=== PATIENT | female | born 1970 | race Caucasian/White ===

== ENCOUNTER 2018-01-29 18:32 | Inpatient (IN) | payer OTHER ==
[~2018-01-29] VITALS: Ht 162.6 cm; Wt 96.6 kg
--- NOTE | ~2018-01-29 | PROC ---
[address] [address] PROCEDURE REPORT Name: INESSA DEVLIN Room: [address] [place] .R.#: [id number] Admission: 01/29/18 Attend Phys: Chely Lieberman MD Discharge: 01/30/18 Date of : 72 Report #: [id number] THIS REPORT FOR: //name// For GI report, please see the Provation report in [employer] content. By: [id number] Records Staff ANJELICA /KURTIS
[~2018-01-29 18:32] MED LIST: CIPRO500 MG PO; CITRATE OF MAG296 ML PO; FLEXERIL PO; HYDROCODONE-AP1 EAC6 PO; IBUPROFEN 800800 M1 PO; NOHOMEMEDICATIONS; SLEEP AID25 MG PO
[2018-01-29 18:36] VITALS: BP 157/106
[2018-01-29] MEDS ORDERED: ZANTAC300 MG PO (18:39)
[2018-01-29] MEDS ORDERED: FLEXERIL PO (18:39)
[2018-01-29 22:40] LABS: ABSOLUTE EOSINOPHILS 0.2 thou/uL (0.0-0.7); ABSOLUTE LYMPHOCYTES 1.7 thou/uL (0.8-5.3); ABSOLUTE MONOCYTES 0.5 thou/uL (0.0-1.2); ABSOLUTE NEUTROPHILS 4.6 thou/uL (1.6-8.1); BASOPHILS 0.7 %; EOSINOPHILS 3.4 %; HEMATOCRIT 34.4 % (37.0-47.0); HEMOGLOBIN 11.9 gm/dL (12.0-15.0); LYMPHOCYTES 24.7 %; MCH 32.5 pg (26.0-34.0); MCHC 34.5 g/dL (28.0-37.0); MCV 94.1 fL (80.0-100.0); MONOCYTES 6.5 %; MPV 7.3 fl. (7.2-11.1); NUCLEATED RBCS 0 /100WBC; PLATELET COUNT* 223 thou/uL (150-400); POLYS 64.7 %; RBC 3.65 mil/uL (4.20-5.00); RDW-CV 12.7 % (10.5-14.5)
[2018-01-29 22:46] LABS: CALCIUM 8.7 mg/dL (8.5-10.1); CREATININE 0.6 mg/dL (0.6-1.3); POTASSIUM 3.3 mmol/L (3.5-5.1)
[2018-01-29 22:50] LABS: ALBUMIN 3.4 g/dL (3.4-5.0); TOTAL BILIRUBIN 0.4 mg/dL (<0.1-1.0); TOTAL PROTEIN 6.4 g/dL (6.4-8.2)
[2018-01-29 23:26] VITALS: BP 98/62
[2018-01-30 08:00] VITALS: BP 99/60
[2018-01-30 09:38] VITALS: BP 110/74; BP 99/60
[2018-01-30 12:45] VITALS: BP 99/64
[2018-01-30] MEDS ORDERED: PROTONIX40 M1 PO (14:09)
[2018-01-30] MEDS ORDERED: ZANTAC300 MG PO (14:09)
[2018-01-30 14:28] VITALS: BP 99/64
--- NOTE | 2018-02-16 12:22 | CON ---
[address] [address] CONSULTATION Name: CLAUSINESSA Room: [address] IN M.R.#: [id number] Admission: 01/29/18 Attend Phys: Chely Lieberman MD Discharge: 01/30/18 Date of : 72 Report #: [id number] THIS REPORT FOR: //name// CC: Brock Pollard MD DATE OF SERVICE: 01/30/2018 REFERRING PHYSICIAN: Chely Lieberman MD REASON FOR CONSULTATION: Dysphagia. IMPRESSION: 1. Progressive dysphagia with intermittent reflux issues -- evaluate for problems related to the same. 2. History of erosive esophagitis with previous EGD and dilations performed by my partner in the past. RECOMMENDATIONS: We will proceed with upper endoscopy today and possible dilation. We will make further recommendations after endoscopy is performed. HISTORY OF PRESENT ILLNESS: A very pleasant 47-year-old white female who presented to Emergency Room on the evening of 01/29/2018 with complaints of feeling as something was not going down. She had been eating some chicken and broccoli about an hour prior to coming to the Emergency Room at 7:00 p.m. and felt like it was not going down very well. It has happened multiple times in the past. She has had EGD and dilations in the past as well. She has undergone an upper endoscopy , in the past with findings of erosive esophagitis. She does have some problem with reflux issues for which she takes some ranitidine 300 mg once daily, but does not have any other issues. She denies complaints of any nausea, vomiting, hematemesis, melena, hematochezia. She has been in the hospital for further evaluation and treatment. ALLERGIES: None. MEDICATIONS: Include ranitidine and cyclobenzaprine. PAST MEDICAL AND SURGICAL HISTORY: Remarkable for reflux, otherwise has been healthy. SOCIAL HISTORY: The patient does not smoke, occasionally drinks alcohol. FAMILY HISTORY: [place] [address] CONSULTATION Name: CLAUSINESSA Room: [address]#: [id number] Admission: 01/29/18 Attend Phys: Chely Lieberman MD Discharge: 01/30/18 Date of : 72 Report #: [id number] PHYSICAL EXAMINATION: GENERAL: A pleasant 47-year-old white female who is awake and alert. CARDIOPULMONARY EXAMINATION: Revealed a regular rate and rhythm. Lungs are clear. ABDOMEN: Soft and not tender. LABORATORY DATA: Revealed a white count of 7.0, hemoglobin 11.9, platelet count 223,000, MCV is 94.1, RDW 12.7. Sodium 139, potassium 3.3, chloride 112, bicarbonate is 27, BUN 17, creatinine 0.6, total bilirubin 0.4, alkaline phosphatase 63, AST 13, ALT 20, albumin is 3.4. test is negative. DISCUSSION: At the present time, the patient has problem with progressive dysphagia. Her was adamant about bringing the patient in for evaluation. She is here now for upper endoscopy and possible dilation. We discussed the nature, risks, benefits, and alternatives of the procedure with the patient, she is agreeable to the same. We will proceed with upper endoscopy today and make further recommendation thereafter. <ELECTRONICALLY SIGNED> By: Dandre Michel DO 02/16/18 [id number] Michel DO /nt
== END 2018-01-30 15:10 | disposition home or self-care (01) | DRG 392 ==
LOC: M.ERS 18:32 → M.TBA-ER 22:21 → M.3W 22:21
PROVIDERS: Emergency Medicine; ADMIT Internal Medicine
PROC: 0D758ZZ Dilation of Esophagus, Via Natural or Artificial Opening Endoscopic (ICD-10-PCS; principal; 2018-01-30)
DX: K22.2 Esophageal obstruction (principal); R13.10 Dysphagia, unspecified; T18.128A Food in esophagus causing other injury, initial encounter; K44.9 Diaphragmatic hernia without obstruction or gangrene; K21.0 Gastro-esophageal reflux disease with esophagitis; Z90.710 Acquired absence of both cervix and uterus; Z90.722 Acquired absence of ovaries, bilateral; Z79.899 Other long term (current) drug therapy; X58.XXXA Exposure to other specified factors, initial encounter; Y93.89 Activity, other specified; Y92.89 Other specified places as the place of occurrence of the external cause; Y99.8 Other external cause status